=== PATIENT | female | born 1960 | race Caucasian/White ===

== ENCOUNTER 2022-03-20 08:09 | Outpatient (CLI) | payer OTHER, SELFPAY ==
[2022-03-20] MEDS: iohexol 350 mg/mL 500 mL Btl (per mL) IV (08:17)
--- NOTE | 2022-03-20 08:30 | CT_ITS ---
WS: [id number] CT ANGIOGRAM CEREBRAL ARTERIES HISTORY: G50.0 - Trigeminal neuralgia TECHNIQUE: Pre and postcontrast imaging through the brain. CT angiogram is performed of the cerebral arteries. During arterial injection imaging is obtained from the skull vertex to the skull base in 1. 25 mm imaging. Coronal and sagittal reformats are submitted. Additional multi planar reformats of the cerebral arteries are submitted, MIP imaging also reviewed. All CT scans at [facility] use at least one of these dose optimization techniques: automated exposure control; mA and/or kV adjustme nt per patient size (includes targeted exams where dose is matched to clinical indication); or iterat placido reconstruction. CONTRAST: Omnipaque 350; 95 mL IV. DLP: 1479.45 mGy.cm COMPARISON: None available. Noncontrast head CT was first performed. No acute hemorrhage. No mass effect. No prior infarct. Very mild small vessel ischemic disease. No mass or mass effect at the cerebellopontine angles. Intracranial vertebral arteries: Codominant vertebral arteries. No occlusions or stenosis. Basilar artery: No significant stenosis or occlusion. No aneurysm. Intracranial Internal carotid arteries: No significant stenosis. There are a few small calcified plaq ues through the cavernous carotid sinuses. No aneurysms. Middle cerebral arteries: Normal. Anterior cerebral arteries and ACOM: Normal. Posterior cerebral arteries and PCOM's: Posterior cerebral arteries are normal caliber. Normal plasterer rough ior communicating artery on the RIGHT. Hypoplastic small caliber LEFT posterior communicating artery but it is patent. Dural venous sinuses are normally enhancing. Mastoid air cells: 0 Paranasal sinuses: Normal. Calvarium: Normal. CT/CT angio head 10634 IMPRESSION: 1. No [place] aneurysm or occlusion. 2. Minimal atherosclerotic plaque in the cavernous portions of the carotid art eries. 3. Hypoplastic LEFT posterior communicating artery. 4. No mass or mass effect at the cerebellopontine angles.
[2022-03-20 08:56] LABS: Blood Urea Nitrogen 16 mg/dL (8-23); Glomerular Filtration Rate 72.9 mL/min (90-130)
== END 2022-03-20 08:10 | disposition home or self-care (01) ==
LOC: RAD 08:10
PROVIDERS: PCP Nurse Practitioner Family; Visit Provider Specialist
DX: G50.0 Trigeminal neuralgia (principal); I65.23 Occlusion and stenosis of bilateral carotid arteries
CPT/HCPCS: 70496; 82565; 84520

== ENCOUNTER → 2022-05-26 14:41 | Outpatient (BNVA) | payer MEDICARE, OTHER, SELFPAY | PROVIDERS: PCP Nurse Practitioner Family; Visit Provider Specialist | DX: G50.0 Trigeminal neuralgia (principal) | CPT/HCPCS: 99213 ==

== ENCOUNTER → 2022-08-31 13:06 | Outpatient (BNVA) | payer MEDICARE, OTHER, SELFPAY | PROVIDERS: PCP Nurse Practitioner Family; Visit Provider Specialist | DX: G43.711 Chronic migraine without aura, intractable, with status migrainosus (principal); Z90.13 Acquired absence of bilateral breasts and nipples | CPT/HCPCS: 99214 ==

== ENCOUNTER → 2022-12-02 09:46 | Outpatient (BNVA) | payer MEDICARE, OTHER, SELFPAY | PROVIDERS: PCP Nurse Practitioner Family; Visit Provider Specialist | DX: G43.711 Chronic migraine without aura, intractable, with status migrainosus (principal); G50.0 Trigeminal neuralgia | CPT/HCPCS: 99214 ==

== ENCOUNTER → 2023-03-03 11:28 | Outpatient (BNVA) | payer MEDICARE, OTHER, SELFPAY | PROVIDERS: PCP Nurse Practitioner Family; Visit Provider Specialist | DX: G43.711 Chronic migraine without aura, intractable, with status migrainosus (principal) | CPT/HCPCS: 99213 ==

== ENCOUNTER → 2023-08-11 09:18 | Outpatient (BNVA) | payer MEDICARE, OTHER, SELFPAY | PROVIDERS: PCP Nurse Practitioner Family; Visit Provider Specialist | DX: G43.711 Chronic migraine without aura, intractable, with status migrainosus (principal) | CPT/HCPCS: 99213 ==